=== PATIENT | female | born 1960 | race Caucasian/White ===

== ENCOUNTER → 2018-03-04 | Emergency (ER) | payer OTHER ==
[~2018-03-04] VITALS: Ht 152.4 cm; Wt 83.9 kg
[~2018-03-04] MED LIST: HUMIRA40 MG/0.1; METROTEXATE
== END | disposition home or self-care (01) ==
LOC: ER 16:41
DX: M54.2 Cervicalgia (principal)

== ENCOUNTER 2018-10-03 15:32 | Emergency (ER) | payer OTHER ==
[~2018-10-03] VITALS: Ht 152.4 cm; Wt 84.8 kg
== END 2018-10-03 17:48 | disposition home or self-care (01) ==
LOC: ER 15:32
DX: B02.9 Zoster without complications (principal)